=== PATIENT | male | born 1995 | race American Indian/Alaskan Native ===

== ENCOUNTER 2018-09-21 22:01 | Emergency (ER) | payer SELFPAY ==
[2018-09-21 23:44] LABS: Basophils % (Auto) 0.2 % (0.0-1.8); Eosinophils % (Auto) 0.2 % (0.0-4.3); Hematocrit 46.5 % (35.5-45.6); Lymphocytes # (Auto) 1.9 K/mm3 (1.2-5.4); Lymphocytes % (Auto) 10.2 % (13.4-35.0); Mean Corpuscular HGB Conc 34 % (32-34); Mean Corpuscular Volume 82 fl (84-94); Monocytes # (Auto) 0.9 K/mm3 (0.0-0.8); Platelet Count 263 K/mm3 (140-440); Red Blood Count 5.68 M/mm3 (3.65-5.03); Red Cell Distribution Width 14.4 % (13.2-15.2)
[2018-09-22 00:01] LABS: Alanine Aminotransferase 11 units/L (7-56); Albumin 4.1 g/dL (3.9-5); BUN/Creatinine Ratio 7; Blood Urea Nitrogen 8 mg/dL (9-20); Calcium 9.4 mg/dL (8.4-10.2); Hemolysis Index 14
[2018-09-22] MEDS ORDERED: TORADOL IV ONE (03:25)
[2018-09-22] MEDS ORDERED: ZOFRAN IV ONE (03:25)
[2018-09-22] MEDS ORDERED: NACL 0.9% 1000 ML 1,000 ML IV ONE (03:25)
[2018-09-22 03:30] LABS: Bilirubin,Urine NEG (Negative); Blood,Urine SM (Negative); Color,Urine Yellow (Yellow); Protein,Urine <15 mg/dL mg/dL (Negative); Urobilinogen,Urine < 2.0 mg/dL (<2.0); WBC,Urine < 1.0 /HPF (0.0-6.0)
--- NOTE | 2018-09-22 05:21 | Cat Scan Report ---
PROCEDURE: CT ABDOMEN PELVIS W CON TECHNIQUE: Computerized axial tomography of the abdomen and pelvis was performed after the administr ation of IV iodinated nonionic contrast. CT DOSE LENGTH PRODUCT: mGycm HISTORY: L flank pain COMPARISONS: None . FINDINGS: Visualized lower thorax: No significant abnormality. Liver: Normal size and attenuation. Spleen: Normal size and attenuation. Gallbladder and biliary system: Normal. Pancreas: Normal. Adrenals: Normal. Kidneys: Both kidneys enhance normally. There is no evidence of stones or hydronephrosis.. GI tract: The bowel loops are normal in caliber and course. The appendix is not enlarged.. Lymph nodes and mesentery: Normal. Vasculature: Normal.. Bladder: Normal. Reproductive organs: Normal. Peritoneum: No free fluid. Musculoskeletal structures: No significant abnormality. Other: None. IMPRESSION: No acute process in the abdomen and pelvis. No evidence renal stones or hydronephrosis.. This document is electronically signed by Freddie Maurice MD., September 22 2018 05:18:54 AM ET
--- NOTE | 2018-09-22 06:12 | Emergency Department Report ---
ED Abdominal Pain HPI - General Chief Complaint: Abdominal Pain Stated Complaint: VOMITTING BLOOD SIDE PAIN Time Seen by Provider: 09/22/18 03:25 Source: patient Mode of arrival: Ambulatory Limitations: No Limitations - History of Present Illness Initial Comments: 23-year-old male presents to ED with left flank pain 2 days. He reports nausea and vomiting, denies diarrhea. Reports fever. Denies dysuria and hematuria. MD Complaint: flank pain -: days(s) (2) Location: L flank Migration to: no migration Severity: moderate Severity scale (0 -10): 2 Quality: sharp Consistency: constant Improves With: nothing Worsens With: nothing Associated Symptoms: nausea, vomiting, hematemesis - Related Data Previous Rx's Medication Instructions Recorded Last Taken Type Dicyclomine [Bentyl] 20 mg PO QID PRN #20 tablet 09/22/18 Unknown Rx Ondansetron [Zofran Odt] 4 mg PO Q8HR PRN #20 tab.rapdis 09/22/18 Unknown Rx Allergies Allergy/AdvReac Type Severity Reaction Status Date / Time No Known Allergies Allergy Verified 09/21/18 22:06 ED Review of Systems ROS: Stated complaint: VOMITTING BLOOD SIDE PAIN Other details as noted in HPI Comment: All other systems reviewed and negative Constitutional: fever Gastrointestinal: abdominal pain, nausea, vomiting, hematemesis. denies: melena, hematochezia Genitourinary: denies: dysuria, frequency, hematuria ED Past Medical Hx - Past Medical History Previous Medical History?: No - Surgical History Past Surgical History?: No - Social History Smoking Status: Current Every Day Smoker Substance Use Type: Alcohol - Medications Home Medications: Home Medications Medication Instructions Recorded Confirmed Last Taken Type Dicyclomine [Bentyl] 20 mg PO QID PRN #20 tablet 09/22/18 Unknown Rx Ondansetron [Zofran Odt] 4 mg PO Q8HR PRN #20 tab.rapdis 09/22/18 Unknown Rx ED Physical Exam - General Limitations: No Limitations General appearance: alert, in no apparent distress - Head Head exam: Present: atraumatic, normocephalic - Eye Eye exam: Present: normal appearance - ENT ENT exam: Present: mucous membranes moist - Neck Neck exam: Present: normal inspection - Respiratory Respiratory exam: Present: normal lung sounds bilaterally. Absent: respiratory distress - Cardiovascular Cardiovascular Exam: Present: normal rhythm, tachycardia (slight) - GI/Abdominal GI/Abdominal exam: Present: soft, tenderness (left flank tenderness). Absent: distended - Extremities Exam Extremities exam: Present: normal inspection - Neurological Exam Neurological exam: Present: alert, oriented X3 - Psychiatric Psychiatric exam: Present: normal affect, normal mood - Skin Skin exam: Present: warm, dry, intact, normal color. Absent: rash ED Course Vital Signs 09/21/18 09/21/18 09/22/18 22:08 22:16 02:30 Temperature 101.7 F H 101.7 F H Pulse Rate 104 H 102 H 90 Respiratory 18 18 18 Rate Blood Pressure 114/70 114/70 Blood Pressure 90/48 [Left] O2 Sat by Pulse 100 100 100 Oximetry 09/22/18 09/22/18 09/22/18 03:40 03:45 04:00 Temperature Pulse Rate Respiratory Rate Blood Pressure 110/63 111/65 116/66 Blood Pressure [Left] O2 Sat by Pulse Oximetry 09/22/18 09/22/18 04:08 04:09 Temperature 101.4 F H Pulse Rate Respiratory 18 Rate Blood Pressure Blood Pressure [Left] O2 Sat by Pulse Oximetry ED Medical Decision Making - Lab Data Result diagrams: 09/21/18 23:10 09/21/18 23:10 - Radiology Data Radiology results: report reviewed, image reviewed - Medical Decision Making - fever, left flank pain - UA negative - WBCs 18 - CT negative for any acute abnormalities - incidentally, tot bili 2.1, however no RUQ or egigatrictenderness/pain - pt feeling much better, sleeping comfortably on stretcher for hours - no hematemesis here in ED - will d/c home at this time - outpt f/u advised - return precautions given - Differential Diagnosis pyelonephritis, ulcer, kidney stone Critical care attestation.: If time is entered above; I have spent that time in minutes in the direct care of this critically ill patient, excluding procedure time. ED Disposition Clinical Impression: Acute flank pain Disposition: DC-01 TO HOME OR SELFCARE Is pt being admited?: No Condition: Stable Instructions: Flank Pain (ED), Acute Abdominal Pain (ED) Referrals: BRIAN MEJIA MD [Primary Care Provider] - 3-5 Days [facility] [Provider Group] - 3-5 Days Time of Disposition: 06:14
[2018-09-22 06:21] VITALS: BP 91/48
== END 2018-09-22 06:21 | disposition home or self-care (01) ==
LOC: ED 22:01
DX: R10.9 Unspecified abdominal pain (principal); R11.2 Nausea with vomiting, unspecified; F17.200 Nicotine dependence, unspecified, uncomplicated
CPT/HCPCS: 36415; 74177; 80053; 81001; 83690; 85025; 96361; 96374; 96375; 99284; J1885; J2405; J7030; Q9967